=== PATIENT | female | born 1970 | race African-American/Black ===

== ENCOUNTER 2017-09-20 11:38 | Emergency (ER) | payer MEDICAID ==
[~2017-09-20] VITALS: Ht 162.6 cm; Wt 81.0 kg
[~2017-09-20 11:38] MED LIST: PRENATAL VITS
[2017-09-20] MEDS ORDERED: ACETAMINOPHEN 325MG TABLET PO ONE (12:45)
[2017-09-20 14:27] VITALS: BP 113/58
== END 2017-09-20 14:32 | disposition home or self-care (01) ==
LOC: ER 12:21
DX: S09.8XXA Other specified injuries of head, initial encounter (principal); S05.10XA Contusion of eyeball and orbital tissues, unspecified eye, initial encounter; W00.0XXA Fall on same level due to ice and snow, initial encounter; Y93.55 Activity, bike riding; Y92.9 Unspecified place or not applicable
CPT/HCPCS: 70450; 70486; 81025; 99284

== ENCOUNTER 2017-10-31 14:13 | Emergency (ER) | payer MEDICAID ==
[~2017-10-31] VITALS: Ht 162.6 cm; Wt 78.0 kg
[2017-10-31] MEDS ORDERED: IBUPROFEN 600MG TABLET PO ONE (15:00)
[2017-10-31 15:03] VITALS: BP 118/58
== END 2017-10-31 15:48 | disposition home or self-care (01) ==
LOC: ER 15:11
DX: S29.012A Strain of muscle and tendon of back wall of thorax, initial encounter (principal); X58.XXXA Exposure to other specified factors, initial encounter; Y93.89 Activity, other specified; Y92.89 Other specified places as the place of occurrence of the external cause; Y99.8 Other external cause status
CPT/HCPCS: 99282

== ENCOUNTER 2019-10-27 17:38 | Emergency (ER) | payer MEDICAID ==
[~2019-10-27] VITALS: Ht 160 cm; Wt 82.0 kg
[2019-10-27 17:58] VITALS: BP 122/77
[2019-10-27] MEDS ORDERED: IBUPROFEN 600MG TABLET PO STA (19:54)
== END 2019-10-27 20:36 | disposition home or self-care (01) ==
LOC: ER 17:38
DX: H60.8X1 Other otitis externa, right ear (principal)
CPT/HCPCS: 99283

== ENCOUNTER 2020-01-20 01:40 | Emergency (ER) | payer MEDICAID ==
[~2020-01-20] VITALS: Ht 160 cm; Wt 82.0 kg
[2020-01-20 06:26] LABS: BASOPHILS % 0.9 % (0.0-2.0); HEMATOCRIT. 33.1 % (36.0-48.0); HEMOGLOBIN. 10.9 g/dL (12.0-16.0); LYMPHOCYTES % 43.8 % (20.0-50.0); MEAN CORPUSCULAR HEMOGLOBIN 28.2 pg (28.0-32.0); MEAN CORPUSCULAR VOLUME 86.1 fL (81.0-99.0); MEAN PLATELET VOLUME 8.9 fl (7.4-10.4); MONOCYTES % 13.8 % (2.0-8.0); NEUTROPHILS % 39.5 % (40.0-76.0); PLATELET 224 x1000/uL (130-400); RED BLOOD CELL COUNT 3.85 mill/uL (4.2-5.4); RED CELL DISTRIBUTION WIDTH 13.7 % (11.6-14.6)
[2020-01-20 06:32] LABS: CHLORIDE 107 mEq/L (98-107)
[2020-01-20 06:47] LABS: HCG SCREEN NEGATIVE
[2020-01-20 09:25] VITALS: BP 102/56
== END 2020-01-20 10:25 | disposition home or self-care (01) ==
LOC: ER 01:46
DX: R07.89 Other chest pain (principal); R03.0 Elevated blood-pressure reading, without diagnosis of hypertension
CPT/HCPCS: 36415; 71045; 80053; 84484; 84703; 85025; 93005; 99285